=== PATIENT | female | born 2005 | race Caucasian/White ===

== ENCOUNTER 2023-06-02 17:57 | Inpatient (IN) ==
[2023-06-02] MEDS ORDERED: Lidocaine 1% VIAL 10 MG/ML 30 ML VIAL INJ PRN (20:58)
[2023-06-02 21:03] LABS: Urine Benzodiazepine Screen None Detected (None Detect); Urine Opiates Screen None Detected (None Detect)
[2023-06-02] MEDS: Dinoprostone 10 MG VAG.SUPP VAGINAL ONE (21:43)
[2023-06-03 01:34] LABS: Hematocrit 30.3 % (35-45); Hemoglobin 9.9 g/dL (11.5-14.3); Mean Corpuscular Hemoglobin 28.4 pg (27-33); Mean Corpuscular Hgb Conc 32.8 g/dL (31-36); Mean Corpuscular Volume 86.7 fL (80-97); Red Blood Count 3.49 10^6/uL (3.63-4.92); Red Cell Distribution Width 15.6 % (12-17); White Blood Count 13.5 10^3/uL (3.8-11.8)
[2023-06-03 02:46] LABS: ABS Basophils 0.1 10^3/uL (0.0-0.1); ABS Eosinophils 0.1 10^3/uL (0.0-0.5); ABS Lymphocytes 3.3 10^3/uL (1.0-4.8); ABS Monocytes 1.1 10^3/uL (0.0-0.9); ABS Neutrophils 9.6 10^3/uL (1.5-7.6); ABS Nucleated RBC 0.02 10^3/ul; Eosinophil % 0.6 %; Lymphocyte % 23.1 %; Mean Platelet Volume 8.9 fL (7.5-11.2); Nucleated Red Blood Cells % 0.2 %/100WBC (0.0-0.8); Platelet Count 250 10^3/uL (150-450)
[2023-06-03] MEDS: Lactated Ringers 1000 ml BAG 1,000 ML IV SCH (10:13)
[2023-06-03] MEDS ORDERED: Albuterol HFA INHALER 8 gm MDI INH PRN (10:40)
[2023-06-03] MEDS: miSOPROStol 100 mcg TAB PO ONE ×3 (11:37→20:37)
[2023-06-03] MEDS ORDERED: miSOPROStol 100 mcg TAB PO ONE (19:20)
[2023-06-04] MEDS: Buffered Lidocaine 1% SYRIN 1 ml INTRADERM ONE (07:14)
[2023-06-04] MEDS: miSOPROStol 100 mcg TAB PO ONE ×2 (07:41→15:24)
[2023-06-04] MEDS: Lactated Ringers 1000 ml BAG 1,000 ML IV ONE (12:29)
[2023-06-04] MEDS: Clindamycin 900 MG/D5W BAG 900 MG/50 ML BAG IVPB SCH (12:30)
[2023-06-04] MEDS: Oxytocin in LR 20,000 MILLI.UNIT/1,000 ML BAG IV SCH (13:03)
[2023-06-04] MEDS ORDERED: Lidocaine 2% JELLY 6 ML Topical TOPICAL ONE (13:38)
[2023-06-04] MEDS: Ondansetron 4 mg VIAL 2 MG/ML 2 ml VIAL IV PRN (14:54)
== END 2023-06-04 18:08 | disposition home or self-care (01) | DRG 951 ==
LOC: MCHOBOUT 17:57 → MCHOB 19:02
PROVIDERS: ADMIT Registered Nurse; ATTEND Advanced Practice Midwife